=== PATIENT | male | born 1980 | race Caucasian/White ===

== ENCOUNTER 2017-10-17 15:42 | Emergency (ER) | payer OTHER ==
[~2017-10-17] VITALS: Ht 185.4 cm; Wt 79.4 kg
[~2017-10-17 15:42] MED LIST: HYDROCODON-ACE1 EAC7 PO; MEDROL DOSPAK21 TA1 PO; NOHOMEMEDICATIONS
[2017-10-17 16:12] LABS: ABSOLUTE BASOPHILS 0.1 thou/uL (0.0-0.2); ABSOLUTE EOSINOPHILS 0.3 thou/uL (0.0-0.7); ABSOLUTE LYMPHOCYTES 2.2 thou/uL (0.8-5.3); ABSOLUTE MONOCYTES 0.7 thou/uL (0.0-1.2); ABSOLUTE NEUTROPHILS 7.7 thou/uL (1.6-8.1); BASOPHILS 0.7 %; EOSINOPHILS 2.9 %; HEMATOCRIT 43.6 % (42.0-52.0); HEMOGLOBIN 14.8 gm/dL (14.0-18.0); LYMPHOCYTES 19.6 %; MCH 32.6 pg (26.0-34.0); MCHC 34.1 g/dL (28.0-37.0); MCV 95.8 fL (80.0-100.0); MONOCYTES 6.6 %; NUCLEATED RBCS 0 /100WBC; PLATELET COUNT* 339 thou/uL (150-400); POLYS 70.2 %; RBC 4.55 mil/uL (4.50-6.00); RDW-CV 13.3 % (10.5-14.5)
[2017-10-17 16:24] LABS: CALCIUM 8.8 mg/dL (8.5-10.1); POTASSIUM 3.6 mmol/L (3.5-5.1)
[2017-10-17 16:28] LABS: ALBUMIN 4.3 g/dL (3.4-5.0); TOTAL BILIRUBIN 0.4 mg/dL (<0.1-1.0); TOTAL PROTEIN 8.1 g/dL (6.4-8.2)
[2017-10-17 17:54] LABS: URINE BILIRUBIN NEGATIVE (Negative); URINE BLOOD NEGATIVE (Negative); URINE CLARITY CLEAR; URINE COLOR YELLOW; URINE GLUCOSE-RANDOM NEGATIVE (Negative); URINE KETONES NEGATIVE (Negative); URINE LEUKOCYTES-REFLEX NEGATIVE (Negative); URINE NITRITE-REFLEX NEGATIVE (Negative); URINE PROTEIN NEGATIVE (Negative); URINE SPECIFIC GRAVITY <= 1.005 (1.005-1.030); URINE UROBILINOGEN 0.2 E.U./dl (0.2-1.0)
[2017-10-17] MEDS ORDERED: BENTYL 20 MG TA20 M1 PO (17:58)
[2017-10-17] MEDS ORDERED: PROMETHAZINE HC25 M1 PO (17:58)
[2017-10-17] MEDS ORDERED: SENEXON-S TABL1 EACH PO (17:58)
[2017-10-17] MEDS ORDERED: ULTRAM 50MG TAB50 MG PO (17:58)
[2017-10-17 18:20] VITALS: BP 148/99
== END 2017-10-17 18:21 | disposition home or self-care (01) ==
LOC: M.ERS 15:42
PROVIDERS: Nurse Practitioner
DX: R10.31 Right lower quadrant pain (principal); R11.0 Nausea

== ENCOUNTER 2018-05-25 13:09 | Emergency (ER) | payer OTHER ==
[~2018-05-25] VITALS: Ht 185.4 cm; Wt 79.4 kg
[~2018-05-25 13:09] MED LIST changes: +BENTYL 20 MG TA20 M1 PO; +PROMETHAZINE HC25 M1 PO; +SENEXON-S TABL1 EACH PO; +ULTRAM 50MG TAB50 MG PO
[2018-05-25] MEDS ORDERED: AUGMENTIN 875-1 EACH PO (13:40)
[2018-05-25 13:55] VITALS: BP 199/101
== END 2018-05-25 13:55 | disposition home or self-care (01) ==
LOC: M.ERS 13:09
DX: L72.3 Sebaceous cyst (principal); H92.01 Otalgia, right ear